=== PATIENT | female | born 1955 | race Caucasian/White ===

== ENCOUNTER 2021-09-08 10:13 | Day surgery (SDC) | payer MEDICARE ==
[~2021-09-08 10:13] MED LIST: ESTR2 PO; HYDACE5 PO; IBUP600 PO; LEVSOD112; LOSA25 PO; VITAMIN B12-FO1 EACH PO
== END 2021-09-08 23:37 | disposition home or self-care (01) ==
LOC: MOI MAM 10:13
DX: D05.12 Intraductal carcinoma in situ of left breast (principal)
CPT/HCPCS: 19081; 88305; 88341; 88342; 88360; A4648

== ENCOUNTER 2021-11-19 06:23 | Day surgery (SDC) | payer MEDICARE ==
[~2021-11-19] VITALS: Ht 162.6 cm; Wt 58.1 kg
[~2021-11-19 06:23] MED LIST changes: +ANORO ELLIPTA1 EACH INH; +BUSP5 PO; +METO50ER PO
--- NOTE | 2021-11-19 08:46 | NUR ---
11/19/21 0846 Janett López WARM BLANKET PROVIDED. PT. COLD. PT. DENIES PAIN OR NAUSEA.
--- NOTE | 2021-11-19 11:36 | NUR ---
11/19/21 1136 Janett López [id number] PT. VERBALIZES FEELING READY TO GO HOME. AT SIDE TO HELP PT. TO DRESS.
== END 2021-11-19 10:05 | disposition home or self-care (01) ==
LOC: ORSCSDS 06:23
PROVIDERS: Surgery
PROC: 0HBU0ZZ Excision of Left Breast, Open Approach (ICD-10-PCS; principal; 2021-11-19 07:30)
DX: D05.12 Intraductal carcinoma in situ of left breast (principal); I10 Essential (primary) hypertension; K21.9 Gastro-esophageal reflux disease without esophagitis; E06.3 Autoimmune thyroiditis; E78.5 Hyperlipidemia, unspecified; J44.9 Chronic obstructive pulmonary disease, unspecified; Z79.51 Long term (current) use of inhaled steroids; Z79.899 Other long term (current) drug therapy; Z87.891 Personal history of nicotine dependence
CPT/HCPCS: 88307; J0690; J1100; J2250; J2370; J2405; J2704; J3010; J7120